=== PATIENT | male | born 1985 | race African-American/Black ===

== ENCOUNTER 2024-03-28 21:47 | Observation (INO) | payer OTHER, BC ==
[~2024-03-28] VITALS: Ht 167.6 cm; Wt 104.3 kg
[2024-03-28 21:55] VITALS: TEMP 98
[2024-03-28] MEDS: SODIUM CHLORIDE 0.9% 1000ML 1,000 ML IV ONE ×2 (22:13)
[2024-03-28] MEDS: ORPHENADRINE CITRATE 30 MG/ML VIAL IM ONE (22:14)
[2024-03-28] MEDS ORDERED: ORPHENADRINE CITRATE 30 MG/ML VIAL ONE (22:15)
[2024-03-28 22:16] LABS: BASOPHILS % 0.5 % (0.0-1.0); EOSINOPHILS % 0.2 % (0.0-6.0); HEMATOCRIT 43.1 % (38.2-49.6); HEMOGLOBIN 14.6 g/dL (14.0-18.0); LYMPHOCYTES # (AUTO) 2.3 (1.0-3.2); LYMPHOCYTES % 27.9 % (18.0-39.1); MEAN CORPUSCULAR HEMOGLOBIN 29.3 pg (28-32); MEAN CORPUSCULAR HGB CONC 33.9 g/dL (31-35); MEAN CORPUSCULAR VOLUME 86.5 fL (81-99); MONOCYTES # (AUTO) 0.7 (0.2-0.8); MONOCYTES % 8.8 % (4.4-11.3); NEUTROPHILS # (AUTO) 5.2 (2.1-6.9); NEUTROPHILS % 62.5 % (38.7-80.0); PLATELET COUNT 271 x10e3/uL (140-360); RED BLOOD COUNT 4.98 x10e6/uL (4.3-5.7); RED CELL DISTRIBUTION WIDTH 12.7 % (11.7-14.4); WHITE BLOOD COUNT 8.34 x10e3/uL (4.8-10.8)
[2024-03-28 22:36] LABS: ALANINE AMINOTRANSFERASE 69 IU/L (0-55); ALBUMIN 5.1 g/dL (3.5-5.0); ALBUMIN/GLOBULIN RATIO 1.3 (0.8-2.0); ALKALINE PHOSPHATASE 57 IU/L (40-150); BILIRUBIN,TOTAL 1.1 mg/dL (0.2-1.2); BLOOD UREA NITROGEN 23 mg/dL (7-26); BUN/CREATININE RATIO 9 (6-25); CALCIUM 10.9 mg/dL (8.4-10.2); CARBON DIOXIDE 21 mmol/L (22-29); CHLORIDE 103 mmol/L (98-107); CREATINE KINASE 1218 IU/L (30-200); CREATININE, SERUM 2.66 mg/dL (0.72-1.25); EST GLOMERULAR FILTRATION RATE 31 ML/MIN (>=60); GLUCOSE 87 mg/dL (74-118); SODIUM 139 mmol/L (136-145)
[2024-03-28 23:03] LABS: TROPONIN I < 0.05 ng/mL (0.0-0.40)
[2024-03-29 00:41] LABS: BILIRUBIN,URINE SMALL (NEGATIVE); CLARITY,URINE CLEAR (CLEAR); COLOR,URINE YELLOW (YELLOW); GLUCOSE, URINE NEGATIVE (NEGATIVE); KETONES,URINE TRACE (NEGATIVE); LEUKOCYTE ESTERASE ,URINE NEGATIVE (NEGATIVE); NITRITE,URINE NEGATIVE (NEGATIVE); PH,URINE 5.5 (5 - 7); PROTEIN,URINE DIPSTICK 2+ (NEGATIVE); URINE UROBILINOGEN 0.2 mg/dL (0.2 - 1)
[2024-03-29] MEDS ORDERED: ONDANSETRON HCL INJ 2MG/ML 2ML 2 MG/ML VIAL IV PRN (01:00)
[2024-03-29] MEDS ORDERED: Morphine 4mg INJECTION 4 MG/ML INJ IV PRN (01:00)
[2024-03-29] MEDS: SODIUM CHLORIDE 0.9% 1000ML 1,000 ML IV SCH (01:27)
[2024-03-29 01:29] LABS: BACTERIA,URINE MANY /HPF; RBC,URINE 0-5 /HPF (0-5)
[2024-03-29 01:30] LABS: EPITHELIAL CELLS,URINE FEW /LPF
[2024-03-29 04:31] LABS: BASOPHILS % 0.4 % (0.0-1.0); EOSINOPHILS # (AUTO) 0.1 (0.0-0.4); EOSINOPHILS % 1.2 % (0.0-6.0); HEMATOCRIT 37.9 % (38.2-49.6); HEMOGLOBIN 12.7 g/dL (14.0-18.0); LYMPHOCYTES # (AUTO) 2.7 (1.0-3.2); LYMPHOCYTES % 35.7 % (18.0-39.1); MEAN CORPUSCULAR HEMOGLOBIN 29.7 pg (28-32); MEAN CORPUSCULAR HGB CONC 33.5 g/dL (31-35); MEAN CORPUSCULAR VOLUME 88.6 fL (81-99); MONOCYTES # (AUTO) 0.8 (0.2-0.8); MONOCYTES % 10.1 % (4.4-11.3); NEUTROPHILS % 52.5 % (38.7-80.0); PLATELET COUNT 215 x10e3/uL (140-360); RED BLOOD COUNT 4.28 x10e6/uL (4.3-5.7); RED CELL DISTRIBUTION WIDTH 12.9 % (11.7-14.4)
[2024-03-29 04:50] LABS: ALBUMIN 4.2 g/dL (3.5-5.0); ALBUMIN/GLOBULIN RATIO 1.3 (0.8-2.0); ANION GAP 15.6 mmol/L (8-16); BILIRUBIN,TOTAL 0.8 mg/dL (0.2-1.2); CALCIUM 9.1 mg/dL (8.4-10.2); CREATININE, SERUM 1.98 mg/dL (0.72-1.25); POTASSIUM 3.6 mmol/L (3.5-5.1); TOTAL PROTEIN 7.4 g/dL (6.5-8.1)
[2024-03-29 05:18] LABS: TROPONIN I 0.023 ng/mL (0-0.300)
[2024-03-29 09:35] VITALS: PULSE 72; RESP 15
[2024-03-29 13:41] LABS: ANION GAP 14.3 mmol/L (8-16); CALCIUM 9.4 mg/dL (8.4-10.2); CREATININE, SERUM 1.54 mg/dL (0.72-1.25); POTASSIUM 4.3 mmol/L (3.5-5.1)
[2024-03-29 14:10] VITALS: BP 165/93; PULSE 70; RESP 19; TEMP 98; O2SAT 98
[2024-03-29 14:12] LABS: TROPONIN I 0.003 ng/mL (0-0.300)
[2024-03-29] MEDS ORDERED: NAPROXEN500 MG PO (14:31)
[2024-03-29] MEDS ORDERED: PREDNISONE10 MG PO (14:31)
[2024-03-29] MEDS ORDERED: LISINOPRIL40 MG PO (14:31)
[2024-03-29] MEDS: SODIUM CHLORIDE 0.9% 500ML 500 ML IV ONE (14:34)
[2024-03-29 16:00] VITALS: BP 165/93; PULSE 70; RESP 19; TEMP 98; O2SAT 98
[2024-03-29 17:10] LABS: ALANINE AMINOTRANSFERASE 54 IU/L (0-55); ALBUMIN 4.5 g/dL (3.5-5.0); ALBUMIN/GLOBULIN RATIO 1.3 (0.8-2.0); ALKALINE PHOSPHATASE 47 IU/L (40-150); ANION GAP 14.3 mmol/L (8-16); BILIRUBIN,TOTAL 0.9 mg/dL (0.2-1.2); BLOOD UREA NITROGEN 20 mg/dL (7-26); BUN/CREATININE RATIO 14 (6-25); CALCIUM 9.4 mg/dL (8.4-10.2); CARBON DIOXIDE 20 mmol/L (22-29); CHLORIDE 109 mmol/L (98-107); CREATINE KINASE 1205 IU/L (30-200); CREATININE, SERUM 1.47 mg/dL (0.72-1.25); EST GLOMERULAR FILTRATION RATE 62 ML/MIN (>=60); GLUCOSE 86 mg/dL (74-118); POTASSIUM 4.3 mmol/L (3.5-5.1); SODIUM 139 mmol/L (136-145); TOTAL PROTEIN 8.1 g/dL (6.5-8.1)
[2024-03-29 17:41] LABS: TROPONIN I < 0.001 ng/mL (0-0.300)
== END 2024-03-29 18:10 | disposition home or self-care (01) ==
LOC: ER 21:55 → ERHOLD 03-29 00:55 → MED/SURG2 03-29 14:05
PROVIDERS: ADMIT Internal Medicine; ATTEND Internal Medicine
DX: X30.XXXA Exposure to excessive natural heat, initial encounter (principal); M62.82 Rhabdomyolysis; N17.9 Acute kidney failure, unspecified; I10 Essential (primary) hypertension; M10.9 Gout, unspecified; Z20.822 Contact with and (suspected) exposure to COVID-19
CPT/HCPCS: 36415 ×2; 80048; 80053 ×2; 81001; 82550 ×2; 84484 ×2; 85025 ×2; 93005; 99285; G0378; J2360; J7030 ×2; J7040; U0002

== ENCOUNTER 2025-04-07 09:01 | Emergency (ER) | payer BC ==
[~2025-04-07] VITALS: Ht 167.6 cm; Wt 104.3 kg
[~2025-04-07 09:01] MED LIST: LISINOPRIL40 MG PO; NAPROXEN500 MG PO; PREDNISONE10 MG PO
[2025-04-07 09:13] VITALS: PULSE 85; RESP 17; TEMP 98.2
[2025-04-07] MEDS ORDERED: HYDROCODON-ACE1 EA11 PO (09:57)
[2025-04-07] MEDS: ONDANSETRON HCL 4 MG ORAL DISINTEGRATING TAB PO ONE (10:10)
[2025-04-07] MEDS: HYDROMORPHONE 1MG/1ML INJ IM STA (10:10)
[2025-04-07 10:20] VITALS: BP 141/78; PULSE 78; RESP 18; O2SAT 100
== END 2025-04-07 10:21 | disposition home or self-care (01) ==
LOC: ER 09:06
DX: M54.42 Lumbago with sciatica, left side (principal); M10.9 Gout, unspecified; I10 Essential (primary) hypertension
CPT/HCPCS: 99282; J1171; Q0162